=== PATIENT | male | born 1990 | race Caucasian/White ===

== ENCOUNTER 2017-04-26 20:49 | Emergency (ER) | payer SELFPAY ==
[2017-04-26 23:11] LABS: CALCIUM 9.3 mg/dL (8.5-10.1); CARBON DIOXIDE 25.1 mmol/L (21-32); CHLORIDE SERUM 103 mmol/L (98-107); CREATININE SERUM 0.8 mg/dL (0.7-1.3); GFR1 > 60 mL/min; GLUCOSE SERUM 132 mg/dL (74-106); POTASSIUM SERUM 3.7 mmol/L (3.5-5.1); SODIUM SERUM 141 mmol/L (136-145)
[2017-04-26 23:15] LABS: ALBUMIN 4.2 g/dL (3.4-5.0); ALKALINE PHOSPHATASE 75 U/L (46-116); ALT/SGPT 16 U/L (16-63); AMYLASE 44 U/L (25-115); AST/SGOT 14 U/L (15-37); BILIRUBIN TOTAL 0.4 mg/dL (0.20-1.00); LIPASE 67 IU/L (73-393)
[2017-04-26 23:22] LABS: TOTAL PROTEIN, SERUM 8.7 g/dL (6.4-8.2)
[2017-04-26 23:39] LABS: BASOPHIL % 0.1 % (0-2); PLATELET COUNT 318 x10^3mcL (130-400); RED CELL DISTRIBUTION WIDTH 13.4 % (11.5-14.5)
[2017-04-27 01:41] LABS: AMPHETAMINE QUAL UR NONE DETECTED (NEG <=1000)
[2017-04-27 01:48] VITALS: BP 134/82
== END 2017-04-27 01:48 | disposition home or self-care (01) ==
LOC: ED 20:49
PROVIDERS: Specialist
DX: R10.9 Unspecified abdominal pain (principal); R50.9 Fever, unspecified; Z88.2 Allergy status to sulfonamides
CPT/HCPCS: 83880; 87804; J1170; J1885; J2405; J2765; J3010; J7030

== ENCOUNTER 2017-04-27 14:03 | Emergency (ER) | payer SELFPAY ==
[2017-04-27 14:24] VITALS: BP 135/62
== END 2017-04-27 15:37 | disposition home or self-care (01) ==
LOC: ED 14:03
DX: R10.9 Unspecified abdominal pain (principal); R63.0 Anorexia; R11.0 Nausea; R53.1 Weakness; Z87.442 Personal history of urinary calculi; Z88.2 Allergy status to sulfonamides